=== PATIENT | female | born 1985 | race Caucasian/White ===

== ENCOUNTER 2024-04-19 00:10 | Emergency (ER) | payer BC, SELFPAY ==
[2024-04-19 00:11] VITALS: BP 159/104
[2024-04-19 00:30] VITALS: BMI 28.5
[2024-04-19 00:43] LABS: % Basophils 0.6 % (0-2); % Eosinophils 2.4 % (0-6); % Immature Granulocytes 0.1 % (0-0.5); % Lymphocytes 23.9 % (20.5-51.1); % Monocytes 8.9 % (1.7-9.3); % Neutrophils 64.1 % (42.2-75.2); Absolute Eosinophils 0.2 10^3/uL (0-0.7); Absolute Lymphocytes 1.7 10^3/uL (1.2-3.4); Absolute Monocytes 0.6 10^3/uL (0.1-0.6); Absolute Neutrophils 4.5 10^3/uL (1.4-6.5); Hematocrit 37.9 % (37.0-47.0); Hemoglobin 13.2 g/dL (12.0-16.0); Mean Corp Hgb Conc. 34.8 g/dL (33.0-37.0); Mean Corpuscular Hgb 28.6 pg (27.0-31.0); Mean Platelet Volume 10.6 fL (7.4-10.4); Nucleated Red Blood Cells % 0 %; Platelet Count 206 10^3/uL (130-400); Red Blood Cell Count 4.62 10^6/uL (4.20-5.40); Red Cell Dist. Width 13.7 % (11.5-14.5); White Blood Cell Count 7.1 10^3/uL (4.8-10.8)
[2024-04-19 00:56] LABS: HCG, Serum Qualitative Screen Negative
[2024-04-19] MEDS: TORADOL 15 MG IV (00:57)
--- NOTE | 2024-04-19 00:59 | ED.GENMED ---
History of Present Illness
General
Chief Complaint: Abdominal Pain
Source: patient
Exam Limitations: none
Time Seen by Provider: 04/19/24 00:31
Nursing documentation reviewed up to this point in time: agreed with
History of Present Illness
History of Present Illness:
38-year-old female presenting to the emergency department today with concerns of a stabbing sharp right upper abdominal pain rating to her right shoulder over the past few hours seem to be few hours after eating. Had similar episode a few weeks ago
that resolved on its own. Denies any nausea vomiting or fever. Denies any abdominal issues in the past.
Review of Systems
Review of Systems
Allergies reviewed?: Yes
All Other Systems: ROS reviewed and negative except as documented in HPI and ROS
Phy Exam
Physical Exam
Physical Exam:
GENERAL: Alert , in no apparent distress
EYE: pupils equal and reactive
NECK: Supple, no significant adenopathy.
ENT: o/p clr, mmm.
CARDIAC: Regular rate and rhythm .
LUNGS: Clear breath sounds bilaterally, no acute respiratory distress, no wheezes/rales/rhonchi
ABDOMEN: Right upper quadrant abdominal l pain otherwise abdomen soft, without focal tenderness, no r/g, no cvat
NEUROLOGICAL: Alert and oriented, no focal neuro deficits
SKIN: Warm and dry, skin intact.
MUSCULOSKELETAL: No edema, well perfused.
PSYCH: Normal and appropriate interaction.
Course
Orders/Labs/Results
Orders:
Orders
04/19/24 00:15
EKG [Electrocardiogram (*1)] Urgent
Reason for Study: Abdominal Pain
EKG- Treatment ONCE
04/19/24 00:28
Test Result ONCE
04/19/24 00:37
Complete Blood Count/With Diff Urgent
Comprehensive Metabolic Panel Urgent
HCG, Serum Qualitative Screen Urgent
Lipase Urgent
04/19/24 00:46
Ketorolac [Toradol] 15 mg IV NOW STA
US Abdomen Complete/Upper Urgent
Comment:
Reason For Exam: RUQpain
Abnormal Lab Results
04/19/24
00:37
MPV 10.6 H fL
(7.4-10.4)
Glucose 107 H mg/dl
(70-99)
04/19/24 00:37
04/19/24 00:37
Vital Signs
Initial and Last Documented VS:
Initial Vital Signs
Temp Pulse Resp BP Pulse Ox
99.7 F 103 16 159/104 98
04/19/24 00:11 04/19/24 00:11 04/19/24 00:11 04/19/24 00:11 04/19/24 00:11
Last Documented Vital Signs
Temp Pulse Resp BP Pulse Ox
99.7 F 88 16 151/92 99
04/19/24 00:11 04/19/24 01:00 04/19/24 01:00 04/19/24 01:00 04/19/24 01:00
MDM/Problems Addressed
MDM/Problems Addressed:
38-year-old female presenting to the emergency department today with concerns of right upper quadrant abdominal pain occurring few hours after eating dinner. No nausea vomiting or fevers does have reproducible pain to the right upper quadrant plan
for ultrasound for further assessment. Ultrasound without acute abnormalities labs also normal normal bilirubin normal liver function test normal lipase. Patient now asymptomatic after receiving Toradol. Patient without emergent findings patient
appears stable for outpatient follow-up return precautions given.
*Critical Care Note
Total Time (30-74mins, 75-104mins- exclusive of procedures): Not Applicable
ED Attending Note
-
Portions of this chart may have been created with voice recognition software.� Occasional wrong word or��sound alike� substitutions may have occurred due to the inherent limitations of voice recognition software.
Discharge Plan
Departure
Patient Disposition: Home (Routine Discharge)
Date of Disposition: 04/19/24
Time of Disposition: 02:49
Patient with high blood pressure during this ER visit?: No
Condition: Good
Covid-19: Not Applicable
Discharge Problem:
Abdominal pain
Instructions: Abdominal Pain
Prescriptions:
No Action
No Current Medications
0
Referrals:
Flaco Buckner MD [Active] - Follow up in 5-7 days
NONE,* [Family Provider] -
Activity Restrictions/Additional Instructions:
You came to the emergency department today with concerns of abdominal pain. Please take famotidine twice daily over the next few days to help with symptoms. Otherwise follow-up closely with your primary care doctor or GI if symptoms are
persisting. Return to the emergency department for any worsening, new or concerning symptoms.
Interventions
Interventions:
*Risk Screen - Suicide Last Done: 04/19/24 00:11
*General Assessment Last Done: 04/19/24 00:11
*Neglect/Abuse Screening Last Done: 04/19/24 00:11
ED- Fall Risk Assessment Last Done: 04/19/24 00:25
AB-Ofquyt-Zsdobifnty Assessment Last Done: 04/19/24 00:25
Discharge Date and Time
Print Language: ROMANIAN
[2024-04-19 01:00] VITALS: BP 151/92
[2024-04-19 01:00] LABS: ALT (SGPT) 16 U/L (0-35); AST (SGOT) 23 U/L (14-36); Albumin 4.8 g/dl (3.5-5.0); Alkaline Phosphatase 43 U/L (38-126); Blood Urea Nitrogen 16 mg/dl (7-17); Calcium 9.3 mg/dl (8.4-10.2); Carbon Dioxide 24 mmol/L (22-30); Chloride 104 mmol/L (98-107); Estimated Creatinine Clearance 117 ml/min; Glucose 107 mg/dl (70-99); Potassium 4.1 mmol/L (3.5-5.1); Sodium 139 mmol/L (135-145); Total Bilirubin 0.4 mg/dl (0.2-1.3); Total Protein 7.3 g/dl (6.3-8.2); eGFR > 60.00
[2024-04-19 01:25] LABS: Lipase 248 U/L (23-300)
[2024-04-19 02:55] VITALS: BP 141/95
== END 2024-04-19 02:55 | disposition home or self-care (01) ==
LOC: EMR 00:10
PROVIDERS: Emergency Medicine; EMERGENCY PHYSICIAN Student in an Organized Health Care Education/Training Program
DX: R10.11 Right upper quadrant pain (principal)
CPT/HCPCS: 99285; 96374; 76700; 80053; 83690; 84703; 85025; 93005; 99284

== ENCOUNTER → 2025-01-01 09:00 | Outpatient (REF) | payer BC, SELFPAY | LOC: WDC 09:00 | PROVIDERS: ATTENDING PHYSICIAN Obstetrics & Gynecology | DX: N63.10 Unspecified lump in the right breast, unspecified quadrant (principal); N63.14 Unspecified lump in the right breast, lower inner quadrant | CPT/HCPCS: 76642; 77062; 77066 ==

== ENCOUNTER → 2025-07-03 14:55 | Outpatient (REF) | payer BC, SELFPAY | LOC: WDC 14:55 | PROVIDERS: ATTENDING PHYSICIAN Obstetrics & Gynecology; FAMILY PHYSICIAN Internal Medicine | DX: R92.8 Other abnormal and inconclusive findings on diagnostic imaging of breast (principal) | CPT/HCPCS: 77061; 77065 ==